=== PATIENT | female | born 1980 | race Caucasian/White ===

== ENCOUNTER → 2018-02-21 14:28 | Outpatient (CLI) | payer OTHER, SELFPAY ==
[2018-02-27 10:06] LABS: HPV APTIMA, High Risk Negative (Negative)
== END ==
PROVIDERS: Visit Provider Obstetrics & Gynecology
DX: Z12.4 Encounter for screening for malignant neoplasm of cervix (principal)
CPT/HCPCS: 88175; G0145

== ENCOUNTER 2018-03-14 19:46 | Emergency (ER) | payer OTHER, SELFPAY ==
[2018-03-14 19:47] VITALS: BP 120/77; PULSE 98; RESP 18; TEMP 36.6; O2SAT 98; BMI 25.8
[2018-03-14 20:47] LABS: Absolute Lymphocyte Count 0.77 X10^3/ul (0.83-4.51); Absolute Neutrophil Count 9.6 X10^3/uL (2.0-7.7); Basophil# 0.02 X10^3/uL; Basophil% 0.2 % (0-1); Eosinophil# 0.04 X10^3/uL; Eosinophils% 0.4 % (0-5); Hematocrit 41.7 % (37-47); Lymphocyte # 0.77 X10^3/ul (4.0); Lymphocyte % 6.9 % (19-41); Mean Corp Hgb Conc 33.6 g/gl (32-36); Mean Corpuscular Hgb 29.9 pg (27.0-32.0); Mean Corpuscular Volume 89.1 fL (81-99); Monocyte# 0.69 X10^3/uL; Monocyte% 6.2 % (0-10); Neutrophil # 9.58 X10^3/uL (2.7-7.7); Platelet Count 290 K/mm3 (150-450); RBC Distribution Width CV 12.5 % (11.6-14.6); RBC Distribution Width SD 40.3 fl (35.1-43.9); Red Blood Count 4.68 M/mm3 (4.2-5.4); White Blood Count 11.1 K/mm3 (4.4-11.0)
[2018-03-14 20:58] LABS: POSITIVE COUNT NO; POSITIVE DIFFERENTIAL NO; POSITIVE MORPHOLOGY NO
[2018-03-14] MEDS: proMETHazine 25 MG/ML Syringe 12.5 MG IV (21:05)
[2018-03-14] MEDS: 0.9% Normal Saline 1,000 ML 1000 ML IV (21:05)
[2018-03-14 21:07] LABS: ALB/GLOB Ratio 0.9 RATIO (0.9-2.4); AST(SGOT) 16 U/L (15-37); Alanine Aminotransfer ALT/SGPT 17 U/L (13-56); Albumin, Serum 3.6 g/dL (3.2-5.0); Alkaline Phosphatase 90 U/L (45-117); Anion Gap 7 (5-15); BUN 12 mg/dL (7-18); BUN/Creat Ratio 13.1 RATIO (10-20); Calcium,Total 8.1 mg/dL (8.5-10.1); Chloride 105 mmol/L (98-107); Creatinine, Serum 0.92 mg/dL (0.55-1.02); EST Glomerular Filtration Rate 73 mL/min (>60); Est Glom Filt Rate - Afr Amer 89 mL/min (>60); Estimated Creatinine Clearance 122.11 ml/min; Globulin 3.9 g/dL (2.2-4.2); Glucose 99 mg/dL (74-106); Potassium 3.7 mmol/L (3.5-5.1); Protein, Total 7.5 g/dL (6.4-8.2); Sodium Level 137 mmol/L (136-145)
--- NOTE | 2018-03-14 22:04 | ED.VISSUMM ---
- ER Visit Summary Date of Service: 03/14/18 Chief Complaint: [] Nausea, vomiting, diarrhea History of Present Illness: The patient is a 37 F [] complaining of nausea/vomiting/diarrhea beginning today. Patient reports she woke at 6:30 with the previously described symptoms denies hematemesis or hematochezia. No other complaints at this time. Physical Examination: [] Afebrile, vital signs stable. Cardiovascular exam is regular rate and rhythm. Lungs are clear to auscultation. Abdomen is soft and nontender. Remainder of exam is unremarkable Test Results: [] CBC, BMP, LFTs within normal limits. Emergency Department Course and Treatment: [] Given intravenous fluid bolus, 12.5 mg intravenously of Phenergan. On serial exam she had improvement of symptoms and was amenable to discharge. She will be discharged home with a prescription for oral Phenergan and instructions to follow-up with her primary care physician. Treatment Plan: [] Follow-up with PCP. Disposition: [] Discharge, stable. Impression: [] Vomiting Diarrhea This note was generated with [employer] dictation software. It may contain incorrect words, spelling, and punctuation that were not noted in review of the chart prior to signing ED Disposition - Plan for ED Patient: Chief Complaint: Nausea/Vomiting/Diarrhea Referrals: Consuelo Cameron NP-C [Primary Care Provider] -
--- NOTE | 2018-03-14 22:07 | ED.DCSUM_ITS ---
- ER Visit Summary Date of Service: 03/14/18 Chief Complaint: [] Nausea, vomiting, diarrhea History of Present Illness: The patient is a 37 F [] complaining of nausea/ vomiting/diarrhea beginning today. Patient reports she woke at 6:30 with the previously described symptoms denies hematemesis or hematochezia. No other complaints at this time. Physical Examination: [] Afebrile, vital signs stable. Cardiovascular exam is regular rate and rhythm. Lungs are clear to auscultation. Abdomen is soft and nontender. Remainder of exam is unremarkable Test Results: [] CBC, BMP, LFTs within normal limits. Emergency Department Course and Treatment: [] Given intravenous fluid bolus, 12.5 mg intravenously of Phenergan. On serial exam she had improvement of symptoms and was amenable to discharge. She will be discharged home with a prescription for oral Phenergan and instructions to follow-up with her primary care physician. Treatment Plan: [] Follow-up with PCP. Disposition: [] Discharge, stable. Impression: [] Vomiting Diarrhea This note was generated with [employer] dictation software. It may contain incorrect words, spelling, and punctuation that were not noted in review of the chart prior to signing ED Disposition - Plan for ED Patient: Chief Complaint: Nausea/Vomiting/Diarrhea Referrals: Consuelo Cameron NP-C [Primary Care Provider] -
--- NOTE | 2018-03-14 22:08 | DCINST.ED_ITS ---
ED Disposition - Plan for ED Patient: Disposition: Home or Assisted Living Chief Complaint: Nausea/Vomiting/Diarrhea Instructions: ED Diet Vomiting Diarrhea Prescriptions: proMETHazine tablet [Phenergan tablet] 25 mg PO Q6H PRN PRN #20 tab PRN Reason: Nausea Referrals: Consuelo Cameron, LEGAL SPECIALIST-C [Primary Care Provider] -
[2018-03-14 22:32] VITALS: BP 155/80; PULSE 80; RESP 14; O2SAT 99
== END 2018-03-14 22:32 | disposition home or self-care (01) ==
PROVIDERS: Emergency Provider Emergency Medicine; Family Provider Nurse Practitioner Family; PCP Nurse Practitioner Family
DX: R11.2 Nausea with vomiting, unspecified (principal); R19.7 Diarrhea, unspecified; Z72.0 Tobacco use
CPT/HCPCS: 80053; 85025; 99283; J7030

== ENCOUNTER 2018-05-28 12:04 | Emergency (ER) | payer OTHER, SELFPAY ==
[2018-05-28 12:05] VITALS: BP 112/83; PULSE 78; RESP 16; TEMP 36.2; O2SAT 100; BMI 34.9
--- NOTE | 2018-05-28 12:58 | ED.RN ---
NO OLD EKG
--- NOTE | 2018-05-28 13:07 | EKG12_ITS ---
Test Reason : Blood Pressure : / mmHG Vent. Rate : 059 BPM Atrial Rate : 059 BPM P-R Int : 146 ms QRS Dur : 084 ms QT Int : 436 ms P-R-T Axes : 018 017 007 degrees QTc Int : 431 ms Sinus bradycardia Low voltage QRS Borderline ECG Confirmed by CAROLYNE NUÑEZ, LYNSEY ([id number]), dictionary editor JUD SHIELDS ([id number]) on 05/30/2018 1:42:04 PM Referred By: Cinthia Smith Confirmed By:LYNSEY BARFIELD MD
--- NOTE | 2018-05-28 13:38 | ED.DCSUM_ITS ---
- ER Visit Summary Date of Service: 05/28/18 Chief Complaint: [Dizziness] History of Present Illness: The patient is a 37 F [who presents the emergency department with dizziness. It started 1 week ago. It started after she tripped and fell and hit her head on the floor. She was unable to get up for approximately 15 minutes afterwards. Since that time every time she stands up walks or moves around she gets severe dizziness. She gets nauseated with it. She does have a headache. She denies any other health history she takes something for depression but has not taken it in over a month. She does smoke. She has no other complaints.] Physical Examination: [] WN WD NAD PERRL EOMI patient will not open her eyes to evaluate for nystagmus but her eyes cross midline on both sides MMM NECK supple and nontender, no masses RRR no murmur rub or gallop, no peripheral edema, symmetric radial pulses CTAB no respiratory distress ABDOMEN is soft and nontender, normal bowel sounds, no distension, no rebound or guarding SKIN is warm and dry no rashes Alert and Oriented x3, CN II-XII in tact, no motor or sensory deficits, gait normal patient has dizziness with movement in any direction. No lymphadenopathy Test Results: [] Emergency Department Course and Treatment: [Patient CT is unremarkable. Labs are unremarkable. She was doing better after 5 of p.o. Valium. I do think her symptoms are likely concussion related. She will rest she was given medication for meclizine and instructions for follow-up. She is invited to come back to the ER for any concerns] Treatment Plan: [] Disposition: [Discharge] Impression: [Concussion] This note was generated with [employer] dictation software. It may contain incorrect words, spelling, and punctuation that were not noted in review of the chart prior to signing ED Disposition - Plan for ED Patient: Chief Complaint: Dizziness Referrals: Consuelo Cameron, JUNIOR-C [Primary Care Provider] -
--- NOTE | 2018-05-28 13:40 | CT_ITS ---
STUDY: CT BRAIN WITHOUT CONTRAST REASON FOR EXAM: Female, 37 years old. Dizziness RADIATION DOSAGE (If Supplied By Facility): CTDIvol = ( 60.81 ) mGy, DLP = ( 1021.47 ) mGycm TECHNIQUE: Transaxial CT imaging of the brain was performed without administration of intravenous contrast material. Coronal and sagittal 2-D MPR Individualized dose optimization techniques were used for this CT. COMPARISON: None. FINDINGS: Extracranial soft tissues including orbital contents exhibit no acute abnormality. Craniofacial osseous structures within the field of view exhibit no acute abnormality. There is minimal mucoperiosteal thickening of the maxillary sinuses, moderate and multifocal of the ethmoid sinuses, minimal of the sphenoid sinuses, partially extending into the base of each frontal sinus. The mastoid air cells and middle ear cavities are clear. Symmetric and grossly normal appearance of the vestibular and acoustic apparatus of the temporal bones bilaterally. Normal size ventricles and extra-axial spaces for the patient's age. Normal pituitary, brainstem and cerebellum There is no acute intracranial bleed, mass or mass effect nor any specific evidence of acute territorial infarct. CT/Brain/Head without Contrast IMPRESSION: Paranasal sinus disease. No acute intracranial process. Electronically Signed: Cody Carolina, at 14:30 EDT Tel , Service support ,
[2018-05-28 13:49] LABS: Absolute Neutrophil Count 3.8 X10^3/uL (2.0-7.7); Basophil# 0.04 X10^3/uL; Basophil% 0.6 % (0-1); Eosinophil# 0.21 X10^3/uL; Hemoglobin 12.3 g/dl (12.0-15.0); Lymphocyte % 33.3 % (19-41); Mean Corp Hgb Conc 32.4 g/gl (32-36); Mean Corpuscular Hgb 29.1 pg (27.0-32.0); Mean Platelet Vol. 10.1 fl (6.2-12.0); Monocyte% 8.7 % (0-10); Neutrophil # 3.75 X10^3/uL (2.7-7.7); Neutrophil % 54.3 % (47-70); Platelet Count 266 K/mm3 (150-450); RBC Distribution Width CV 13.2 % (11.6-14.6); RBC Distribution Width SD 43.4 fl (35.1-43.9); Red Blood Count 4.22 M/mm3 (4.2-5.4); White Blood Count 6.9 K/mm3 (4.4-11.0)
[2018-05-28] MEDS: 0.9% Normal Saline 1,000 ML 1000 ML IV (13:50)
[2018-05-28] MEDS: diazePAM 5 MG Tablet PO (13:50)
[2018-05-28 13:51] LABS: POSITIVE COUNT NO; POSITIVE DIFFERENTIAL NO; POSITIVE MORPHOLOGY NO
[2018-05-28 14:00] LABS: ALB/GLOB Ratio 0.9 RATIO (0.9-2.4); AST(SGOT) 9 U/L (15-37); Alanine Aminotransfer ALT/SGPT 18 U/L (13-56); Albumin, Serum 3.2 g/dL (3.2-5.0); Alkaline Phosphatase 70 U/L (45-117); Anion Gap 7 (5-15); BUN 15 mg/dL (7-18); BUN/Creat Ratio 16.2 RATIO (10-20); Calcium,Total 8.4 mg/dL (8.5-10.1); Chloride 112 mmol/L (98-107); Creatinine, Serum 0.92 mg/dL (0.55-1.02); EST Glomerular Filtration Rate 73 mL/min (>60); Est Glom Filt Rate - Afr Amer 88 mL/min (>60); Estimated Creatinine Clearance 85.28 ml/min; Globulin 3.4 g/dL (2.2-4.2); Glucose 91 mg/dL (74-106); Potassium 3.7 mmol/L (3.5-5.1); Protein, Total 6.6 g/dL (6.4-8.2); Sodium Level 143 mmol/L (136-145)
--- NOTE | 2018-05-28 15:10 | ED.DEP ---
ED Disposition - Plan for ED Patient: Chief Complaint: Dizziness Instructions: ED Concussion Referrals: Consuelo Cameron, JUNIOR-C [Primary Care Provider] - 3-5 Days Joseph Handley MD [STAFF PHYSICIAN] -
--- NOTE | 2018-05-28 15:38 | ED.DEP ---
ED Disposition - Plan for ED Patient: Chief Complaint: Dizziness Instructions: ED Concussion Prescriptions: Meclizine HCl [Motion Sickness Relief] 25 mg PO 4X/DAY PRN PRN #20 tablet PRN Reason: Dizziness Referrals: Joseph Handley MD [STAFF PHYSICIAN] - Consuelo Cameron NP-C [Primary Care Provider] - 3-5 Days
[2018-05-28 15:40] VITALS: BP 122/74; PULSE 76; RESP 16; RESP 19; O2SAT 99
--- NOTE | 2018-05-28 15:41 | ED.RN ---
REVIEWED D/C INSTRUCTIONS, FOLLOW UP CARE, PRESCRIPTION, AND S/S THAT WOULD WARRANT A RETURN TO THE ED WITH PT. PT VERBALIZED AN UNDERSTANDING AND DENIES FURTHER QUESTIONS FOR THIS RN. PT SKIN P/W/D, RESP EVEN AND UNLABORED, PT A&O X 3, NO DISTRESS NOTED. PT AMBULATED OUT OF ED, GAIT STEADY.
== END 2018-05-28 15:42 | disposition home or self-care (01) ==
PROVIDERS: Emergency Provider Emergency Medicine; Family Provider Nurse Practitioner Family; PCP Nurse Practitioner Family
DX: S06.0X9A Concussion with loss of consciousness of unspecified duration, initial encounter (principal); W01.198A Fall on same level from slipping, tripping and stumbling with subsequent striking against other object, initial encounter; Y93.9 Activity, unspecified; Y92.9 Unspecified place or not applicable; Y99.9 Unspecified external cause status; Z72.0 Tobacco use
CPT/HCPCS: 70450; 80053; 85025; 93005; 96360; 99285; J7030

== ENCOUNTER → 2018-08-19 15:26 | Outpatient (CLI) | payer OTHER, SELFPAY | PROVIDERS: Referring Provider Nurse Practitioner Family; Visit Provider Nurse Practitioner Family | DX: G47.10 Hypersomnia, unspecified (principal) | CPT/HCPCS: 95810 ==

== ENCOUNTER 2020-09-23 12:15 | Emergency (ER) | payer OTHER, SELFPAY ==
[2019-11-16 11:32] VITALS: BMI 34.9
[2020-09-23 12:15] VITALS: BP 133/78; PULSE 106; RESP 18; TEMP 36.8; O2SAT 100; BMI 31.9
[2020-09-23] MEDS: Ibuprofen 600 MG Tablet PO (13:45)
[2020-09-23] MEDS: Cephalexin 250 MG Capsule 500 MG PO (13:45)
[2020-09-23] MEDS: Smz/Tmp Ds Tablet 1 TABLET PO (13:45)
--- NOTE | 2020-09-23 14:09 | ED.DCSUM_ITS ---
History of Present Illness Chief Complaint: Abscess Informant: Patient Onset: Days - 2 Narrative: 2 days worsening pain and bump on her right armpit. No fevers. No drainage. Pain with palpation. No history of diabetes. No history of similar. Denies any past medical history. Prior similar symptoms: No Past Medical History - Allergies and Home Meds Allergies/Adverse Reactions: Allergies No Known Allergies Allergy (Verified 09/23/20 12:17) Primary Care Physician: [facility],Courtney Carias [Primary Care Provider] - Past Medical History: None Smoking Status: Smoker, status unknown Review of Systems General: Denies: Chills, Fever, Sweats Eyes: Denies: Visual changes - bilaterally, Diplopia ENT: Denies: Rhinorrhea, Sore throat Cardiovascular: Denies: Chest pain, Palpitations Respiratory: Denies: Dyspnea, Cough, Dyspnea on exertion Gastrointestinal: Denies: Abdominal pain, Nausea, Vomiting, Diarrhea, Melena, Hematochezia Genitourinary: Denies: Dysuria, Hematuria, Frequency Musculoskeletal: Denies: Back pain, Extremity Pain Skin: Reports: Abscess. Denies: Rash, Wounds Neurological: Denies: Headache, Weakness, Numbness Physical Exam Vital Signs/Narrative: Vital Signs Temp Pulse Resp BP Pulse Ox 09/23/20 12:15 98.2 F 106 H 18 133/78 H 100 Inital Vital Signs reviewed: Yes General: Well nourished, Well developed, No Acute Distress Head: Normocephalic, Atraumatic Eyes: Perrl, EOMI ENT: Moist mucous membranes, No rhinorrhea Neck: Supple, Nontender Cardiovascular: Regular rate, Regular rhythm, No murmurs Respiratory: No distress, CTA bilaterally, Chest nontender Abdomen: Soft, Nontender, Nondistended, Normal bowel sounds Back: Nontender, Normal Inspection Extremities: Nontender, No edema Skin: - - Right axillary: There is a 4 cm x 2.5 cm fluctuance along the axillary chest line region. There is a patch of erythema on the lower aspect. Sniffily tender to palpation. No active drainage. Neurological: Alert, Oriented x3, Cranial nerves II-XII grossly intact, Normal Strength, Normal Sensation Psychological: Normal affect, Normal Mood Diagnostic/Tx/Re-eval - Medical Decision Making Patient exam concerns for cellulitic region with possible abscess from the superior to inferior aspect of the fluctuance. Started on Keflex and Bactrim given ibuprofen ED. Discussed incision and drainage due to fluctuance which she agreed. This was performed initially on the superior aspect with a larger region however there was no exudative drainage, there is soft tissue fat noted, therefore I&D was attempted on the lower aspect over the erythema region, again there is no exudates. Discussed soft tissue mass with the patient, there is no induration in the outer breast region. However she does report family history of breast cancer she has been screened in the past however none recently. She has tobacco history. There is no lymph nodes in the axillary region that was palpable. She began prescription for pain control antibiotics for cellulitis and follow-up with surgery for outpatient evaluation. Signs and sent discussed return. All questions were answered. Procedure note: Verbal consent. Incision and drainage. Normal sterile fashion. A total of 15 cc 0.5% bupivacaine used for local analgesia. Initial cruciate incision placed on the upper aspect with no exudative drainage, there is soft fatty tissue noted. No loculations to break. Inferior aspect was NS to size, straight incision, again no exudates. Patient tolerated procedure well. Dressing by nursing. ED Disposition - Plan for ED Patient: Disposition: Home or Assisted Living Diagnosis: Cellulitis of right axilla, Soft tissue mass Instructions: ED Abscess Incision And Drainage Prescriptions: Smz/Tmp Ds [Bactrim Ds] 1 tab PO BID #20 tab Transmission Status: Pending to [facility] Cephalexin [Keflex] 500 mg PO Q6 #40 cap Transmission Status: Pending to [facility] Hydrocodone Bitart/Apap 5-325 [Simms 5MG-325MG] 1 tablet PO Q6H PRN PRN 3 Days #10 tablet PRN Reason: Pain Transmission Status: Sent to [facility] Referrals: Shanique Oviedo MD [STAFF PHYSICIAN] - 3-5 Days [facility],Courtney Carias [Primary Care Provider] - 5-7 Days Additional Instructions: No exudates from the soft tissue mass, follow-up with surgery for outpatient evaluation. Take antibiotic as prescribed.
== END 2020-09-23 14:52 | disposition home or self-care (01) ==
PROVIDERS: Emergency Provider Emergency Medicine
DX: L03.111 Cellulitis of right axilla (principal); R22.2 Localized swelling, mass and lump, trunk; F17.200 Nicotine dependence, unspecified, uncomplicated
CPT/HCPCS: 10060; 99283

== ENCOUNTER 2020-09-27 15:51 | Inpatient (IN) | payer OTHER, SELFPAY ==
[2020-09-27 14:37] VITALS: BMI 38.5
[2020-09-27 15:53] VITALS: BP 134/72; PULSE 96; RESP 18; TEMP 35.9; O2SAT 100; BMI 38.5
--- NOTE | 2020-09-27 16:23 | CT_ITS ---
STUDY: CT CHEST WITH CONTRAST REASON FOR EXAM: Female, 39 years old. Right axillary abscess. Cellulitis. RADIATION DOSAGE (If Supplied By Facility): CTDIvol = ( 13.7 ) mGy, DLP = ( 750.27 ) mGycm TECHNIQUE: Transaxial imaging was performed following intravenous administration of 100 ml of ISOVUE-300 contrast material. Coronal and sagittal reformatted images were created. Individualized dose optimization techniques were used for this CT. COMPARISON: None FINDINGS: There are no pulmonary infiltrates or pleural effusions. There are no pulmonary nodules or masses. There is no pneumothorax. The heart and pericardium are within normal limits. There is no evidence of thoracic aortic aneurysm. Images through the upper abdomen demonstrate no significant abnormality. There is diffuse subcutaneous edema with stranding and fluid noted in the right axilla. There is no discrete fluid collection. There is right axillary lymphadenopathy with the largest node measuring 1.8 cm. There is no left axillary lymphadenopathy. There is no mediastinal or hilar lymphadenopathy. There are no destructive osseous lesions. CT/Chest WITH Contrast IMPRESSION: Diffuse subcutaneous edema with stranding and subcutaneous fluid in the right axilla. No discrete fluid collection. Right axillary lymphadenopathy. Electronically Signed: Bishnu Allen, at 18:20 EST Tel , Service support ,
--- NOTE | 2020-09-27 16:26 | ED.DCSUM_ITS ---
History of Present Illness Chief Complaint: Abscess Informant: Patient Onset: Weeks - 1 week Current Severity: Moderate Maximum Severity: Moderate Narrative: Patient presents with cellulitis versus abscess to the right axilla. She states she first noted the lesion 1 week ago. She was seen in the ER on the . 2 separate fluctuant areas were I&D without return of pus. She was placed on Bactrim and Keflex. She followed up today with B[facility]INFORMAT[facility] TECHNICIAN secondary to concern for possible underlying mass. They did not feel that there was evidence of a breast mass and was sent to the surgical office. Surgery office felt that the area was cellulitic but did not feel any palpable masses amenable to drainage. She was sent to the ER for blood work, CT scan and possible admission for IV antibiotics. Patient does report having some chills but no fever. She has never had similar lesions in the past. - Past Medical History (1) Anxiety Status: Chronic Past Medical History - Allergies and Home Meds Allergies/Adverse Reactions: Allergies No Known Allergies Allergy (Verified 09/27/20 15:52) [facility] - Smoking Status: Current every day smoker Review of Systems General: Reports: Chills. Denies: Fever Eyes: Denies: Visual changes - bilaterally ENT: Denies: Bilateral ear pain Cardiovascular: Denies: Chest pain Respiratory: Denies: Dyspnea, Cough Gastrointestinal: Denies: Abdominal pain, Nausea, Vomiting Musculoskeletal: Reports: Extremity Pain Skin: Reports: Wounds Neurological: Denies: Weakness, Parasthesia Hematologic: Denies: Easy bruising, Easy bleeding Allergy: Denies: Uticaria Physical Exam Vital Signs/Narrative: Vital Signs Temp Pulse Resp BP Pulse Ox 09/27/20 15:53 96.6 F L 96 18 134/72 H 100 Inital Vital Signs reviewed: Yes General: Well nourished, Well developed Head: Normocephalic Eyes: Perrl, EOMI ENT: Moist mucous membranes Neck: Supple Cardiovascular: Regular rate, Regular rhythm Respiratory: No distress, CTA bilaterally Abdomen: Soft, Nontender Extremities: - - 2 areas of recent I&D noted in the right axilla. Surrounding erythema and skin thickness. No lymphangitic streak noted. Neurological: Alert, Oriented x3 Psychological: Normal affect Diagnostic/Tx/Re-eval Impressions Chest CT 09/27/20 16:23 IMPRESSION: Diffuse subcutaneous edema with stranding and subcutaneous fluid in the right axilla. No discrete fluid collection. Right axillary lymphadenopathy. Electronically Signed: Bishnu Allen, at 18:20 EST Tel , Service support , 09/27/20 16:23 CT Chest [Chest WITH Contrast] [CT] Stat Laboratory Results 09/27/20 09/27/20 16:30 16:30 WBC 14.7 H RBC 4.20 Hgb 12.4 Hct 38.1 MCV 90.7 MCH 29.5 MCHC 32.5 RDW Std Deviation 46.0 H RDW Coeff of Cira 13.7 Plt Count 352 MPV 9.6 Immature Gran % (Auto) 2.000 H Neut % (Auto) 77.4 H Lymph % (Auto) 10.9 L [place] % (Auto) 8.5 Eos % (Auto) 0.7 Baso % (Auto) 0.5 Absolute Neuts (auto) 11.3 H Absolute Lymphs (auto) 1.60 Nucleated RBC % 0 Sodium 135 L Potassium 3.7 Chloride 105 Carbon Dioxide 23.0 Anion Gap 7 BUN 11 Creatinine 0.84 Estim Creat Clear Calc 91.60 Est GFR (MDRD) Af Amer 97 Est GFR (MDRD) Non-Af 80 BUN/Creatinine Ratio 13.1 Glucose 86 Calcium 8.6 - Medical Decision Making Patient was given morphine and Zofran for pain on arrival. On repeat evaluation patient is resting more comfortably. CT scan confirms cellulitis but no deep abscess. Patient be admitted for IV antibiotics. Vancomycin has been ordered here. ED Disposition - Plan for ED Patient: Disposition: Home or Assisted Living Diagnosis: Cellulitis Referrals: [facility],Courtney Carias [Primary Care Provider] -
[2020-09-27] MEDS: Ondansetron 4 MG/2 ML Vial IV (16:39)
[2020-09-27] MEDS: Morphine 4 MG/ML Syringe IV (16:39)
[2020-09-27 16:42] LABS: Absolute Neutrophil Count 11.3 X10^3/uL (2.0-7.7); Basophil# 0.08 X10^3/uL; Basophil% 0.5 % (0-1); Eosinophil# 0.11 X10^3/uL; Eosinophils% 0.7 % (0-5); Hematocrit 38.1 % (37-47); Hemoglobin 12.4 g/dL (12.0-15.0); Lymphocyte % 10.9 % (19-41); Mean Corp Hgb Conc 32.5 g/dL (32-36); Mean Corpuscular Hgb 29.5 pg (27.0-32.0); Mean Corpuscular Volume 90.7 fL (81-99); Mean Platelet Vol. 9.6 fl (6.2-12.0); Monocyte# 1.24 X10^3/uL; Monocyte% 8.5 % (0-10); NRBC Flagged by Analyzer 0 % (0-5); Neutrophil # 11.34 X10^3/uL (2.7-7.7); Neutrophil % 77.4 % (47-70); Platelet Count 352 K/mm3 (150-450); RBC Distribution Width CV 13.7 % (11.6-14.6); White Blood Count 14.7 K/mm3 (4.4-11.0)
[2020-09-27 16:58] LABS: Anion Gap 7 (5-15); BUN 11 mg/dL (7-18); BUN/Creat Ratio 13.1 RATIO (10-20); Calcium,Total 8.6 mg/dL (8.5-10.1); Chloride 105 mmol/L (98-107); Creatinine, Serum 0.84 mg/dL (0.55-1.02); EST Glomerular Filtration Rate 80 mL/min (>60); Est Glom Filt Rate - Afr Amer 97 mL/min (>60); Glucose 86 mg/dL (74-106); Potassium 3.7 mmol/L (3.5-5.1); Sodium Level 135 mmol/L (136-145)
[2020-09-27 19:04] VITALS: BMI 38.5
[2020-09-27 19:15] VITALS: BP 115/74; PULSE 80; RESP 16; TEMP 36.9
[2020-09-27 19:19] VITALS: BP 115/74; PULSE 80; RESP 16; TEMP 36.9; O2SAT 100
[2020-09-27 19:28] VITALS: BP 111/58; PULSE 76; RESP 18; TEMP 36.1; O2SAT 100
--- NOTE | 2020-09-27 19:38 | PCM.HP.STD ---
History of Present Illness Date of Admission: 09/27/20 Chief Complaint: Arm pain The patient is a 39 year old F with PMH as below who presents to the hospital with right axillary pain and redness. She states that on Saturday of last week she started doing some redness and came to the ER on Saturday. She had 2 areas of procedure fluctuant that were I&D however there is no purulent material obtained and no culture obtained. She was started on Bactrim and Keflex and discharged home. She followed up with gynecology because the ER physician that he had felt a lump, however they evaluated her breast and did not think that she had a lump but they referred her today on the day of admission, to surgery who evaluated her and felt that she needed to come into the ER for a CT scan. She was found to have redness as well as a leukocytosis of [address] scan was negative for any abscess but there is continued thickening, subcutaneous stranding and skin redness consistent with cellulitis. She was given a dose of vancomycin in the ER Past Medical History Past Medical History (Chronic Problems): Chronic Problems (Last Reviewed 09/27/20 @ 14:42 by Flory Moran) Anxiety (Chronic) Depression (Chronic) Medical History: Medical History (Last Reviewed 09/27/20 @ 14:42 by Flory Moran) Depression (Chronic) F32.9 Chronic pain G89.29 Allergies No Known Allergies Allergy (Verified 09/27/20 15:52) Home Medications: Ambulatory Orders Medication Instructions Recorded Cephalexin [Keflex] 500 mg PO Q6 09/27/20 Smz/Tmp Ds [Bactrim Ds] 1 tab PO BID 09/27/20 Surgical History: Surgical History (Last Reviewed 09/27/20 @ 14:42 by Flory Moran) History of placement of ear tubes Z96.22 S/P eye surgery Z98.890 S/P tonsillectomy Z90.89 jaw surgery right femur surgery Smoking Status: Current every day smoker Tobacco Use: Cigarettes Alcohol: None Drugs: None - *Family History Maternal Family History: Family History (Last Reviewed 09/27/20 @ 14:42 by Flory Moran) Mother Myocardial infarction Other Colon cancer Paternal Family History: Family History (Last Reviewed 09/27/20 @ 14:42 by Flory Moran) Mother Myocardial infarction Other Colon cancer History Items: Unknown Review of Systems Constitutional: Reports: Chills. Denies: Fever, Weight Change HEENT: Denies: Head Aches, Sinus Congestion, Sinus Drainage Cardiovascular: Denies: Chest Pain, Palpitations Respiratory: Denies: Cough, Shortness of breath at rest, Sputum production Gastrointestinal: Denies: Abdominal Pain, Nausea, Vomiting Genitourinary: Denies: Dysuria Musculoskeletal: Denies: Joint Pain, Joint Tenderness Skin: Reports: Wounds. Denies: Rash Neurological: Denies: Numbness, Tingling, Focal weakness Psychiatric: Denies: Anxiety, Depression Hematologic/ Lymphatic: Denies: Easy Bruising, Easy Bleeding VTE Information - Inpt Only VTE Present on Admission: No Patient Problems: Active and Suspected Problems (Last Reviewed 09/27/20 @ 14:42 by Flory Moran) Cellulitis (Acute) - Physical Exam Vitals/I&O's: Vital Signs Temp Pulse Resp BP Pulse Ox 97 F L 76 18 111/58 L 100 09/27/20 19:28 09/27/20 19:28 09/27/20 19:28 09/27/20 19:28 09/27/20 19:28 Oxygen Delivery Method Room Air Weight: 253 lb 1.451 oz Body Mass Index (BMI) 38.5 General: Alert, Oriented x3, Cooperative, No apparent distress HEENT: Atraumatic, PERRLA, EOMI, Normocephalic Oral: Moist Mucosa Neck: Supple, No JVD Lungs: Clear to auscultation, Normal air movement, No rhonchi, No wheeze, No rales Cardiovascular: Regular rate, Regular Rhythm, Normal S1, Normal S2, No murmurs Abdomen: Soft, Non Tender, Non-Distended, No Hepato-splenomegaly, Obese Extremities: No edema, Capillary Refill Less than 3 Seconds Skin: Ulcer/ Wound - 2 wounds about a centimeter in diameter in her right axilla from her previous I&D with mild cellulitic changes surrounding both wounds Neurological: Neuro grossly intact, Sensory exam intact to light touch and pain Psych/Mental Status: Normal Affect, Appropriate Laboratory Results 09/27/20 16:30: WBC 14.7 H, RBC 4.20, Hgb 12.4, Hct 38.1, MCV 90.7, MCH 29.5, MCHC 32.5, RDW Std Deviation 46.0 H, RDW Coeff of Cira 13.7, Plt Count 352, MPV 9.6, Immature Gran % (Auto) 2.000 H, Neut % (Auto) 77.4 H, Lymph % (Auto) 10.9 L, [place] % (Auto) 8.5, Eos % (Auto) 0.7, Baso % (Auto) 0.5, Absolute Neuts (auto) 11.3 H, Absolute Lymphs (auto) 1.60, Nucleated RBC % 0 09/27/20 16:30: Sodium 135 L, Potassium 3.7, Chloride 105, Carbon Dioxide 23.0, Anion Gap 7, BUN 11, Creatinine 0.84, Estim Creat Clear Calc 91.60, Est GFR (MDRD) Af Amer 97, Est GFR (MDRD) Non-Af 80, BUN/Creatinine Ratio 13.1, Glucose 86, Calcium 8.6 Current Medications Vancomycin HCl 1,750 mg/ (Sodium Chloride) 535 mls @ 250 mls/hr IV X1 ONE Stop: 09/27/20 21:23 Influenza Virus Vaccine Quadrival (Influenza Vaccine (6mos+)/Pf 0.5 Ml Syringe) 0.5 ml IM .ONCE ONE Stop: 09/28/20 10:01 Sodium Chloride (0.9% Saline Lock 10 Ml Syringe) 10 - 40 ml IV UD PRN PRN Reason: SALINE FLUSH Assessment/Plan All Active Problems (Last Reviewed 09/27/20 @ 14:42 by Flory Moran) Cellulitis (Acute) 1. Right axillary cellulitis status post I&D on 09/23/2020 with failure of outpatient antibiotics -She states that she took both Bactrim and Keflex appropriately for 5 days without any improvement -Currently with leukocytosis of 14.7 and a left shift -We will broaden her antibiotics to vancomycin and Zosyn and continue to monitor -Blood cultures are pending DVT: Ambulation Inpatient E&M: 24106 Init Hosp L2
[2020-09-27] MEDS: Morphine 2 MG/ML Syringe IV (20:15)
[2020-09-27 20:17] VITALS: BMI 37.6
--- NOTE | 2020-09-27 20:39 | PCM.RX.CS ---
Consult Pharmacy has been consulted to manage selected antiobiotic: Vancomycin Type of Consult: New start Suspected Infection: Skin/Soft tissue Prior Doses of Antibiotics Received/Current Regimen: received 1750mg IV x1 in E.R. starting at 20:15 tonight Labs: Sodium 135 mmol/L (136-145) L 09/27/20 16:30 Potassium 3.7 mmol/L (3.5-5.1) 09/27/20 16:30 Chloride 105 mmol/L (98-107) 09/27/20 16:30 Carbon Dioxide 23.0 mmol/L (21.0-32.0) 09/27/20 16:30 Anion Gap 7 (5-15) 09/27/20 16:30 BUN 11 mg/dL (7-18) 09/27/20 16:30 Creatinine 0.84 mg/dL (0.55-1.02) 09/27/20 16:30 Est GFR (MDRD) Af Amer 97 mL/min (>60) 09/27/20 16:30 Est GFR (MDRD) Non-Af 80 mL/min (>60) 09/27/20 16:30 BUN/Creatinine Ratio 13.1 RATIO (10-20) 09/27/20 16:30 Glucose 86 mg/dL (74-106) 09/27/20 16:30 Weight used for dosin.4 kg Estimated Creatinine Clearance: 119ml/min Goal Trough: 15-20 mcg/mL Pharmacy Plan for Drug Dosing: After the E.R. dose is finished, will continue with 1250mg IV q8h. A trough will be ordered to be drawn before the 4th dose tomorrow and further dosing will be evaluated then. The patient's CrCl was calculated using an adjusted body weight of 83.3kg. Pharmacy Service will continue to monitor and adjust dosing as required. Follow-Up Labs: Trough Vancomycin Labs to be done on [date and time ordered]: 09/28/20 19:30
[2020-09-27] MEDS: Acetaminophen 325 MG Tablet 650 MG PO (22:58)
[2020-09-28 02:08] VITALS: BP 107/51; PULSE 73; RESP 18; TEMP 36.4; O2SAT 98
[2020-09-28] MEDS: Morphine 2 MG/ML Syringe IV ×5 (02:31→23:21)
[2020-09-28] MEDS: 0.9% Saline Lock 10 ML Syringe IV ×5 (02:31→23:21)
[2020-09-28 04:34] LABS: Probe Check PASS
[2020-09-28 04:36] LABS: M R Staph aureus DNA By PCR POSITIVE (Negative); Staph aureus DNA By PCR POSITIVE (Negative)
[2020-09-28 06:03] LABS: Absolute Lymphocyte Count 2.43 X10^3/uL (0.83-4.51); Absolute Neutrophil Count 10.9 X10^3/uL (2.0-7.7); Basophil% 0.7 % (0-1); Eosinophil# 0.21 X10^3/uL; Eosinophils% 1.4 % (0-5); Hematocrit 36.6 % (37-47); Hemoglobin 11.8 g/dL (12.0-15.0); Lymphocyte # 2.43 X10^3/ul (4.0); Mean Corp Hgb Conc 32.2 g/dL (32-36); Mean Corpuscular Hgb 29.5 pg (27.0-32.0); Mean Corpuscular Volume 91.5 fL (81-99); Mean Platelet Vol. 9.7 fl (6.2-12.0); Monocyte# 1.14 X10^3/uL; Monocyte% 7.5 % (0-10); NRBC Flagged by Analyzer 0 % (0-5); Neutrophil # 10.94 X10^3/uL (2.7-7.7); Neutrophil % 71.8 % (47-70); Platelet Count 388 K/mm3 (150-450); RBC Distribution Width CV 13.7 % (11.6-14.6); RBC Distribution Width SD 46.5 fl (35.1-43.9); White Blood Count 15.2 K/mm3 (4.4-11.0)
[2020-09-28 06:27] LABS: Anion Gap 4 (5-15); BUN 10 mg/dL (7-18); Calcium,Total 8.2 mg/dL (8.5-10.1); Chloride 107 mmol/L (98-107); Creatinine, Serum 0.84 mg/dL (0.55-1.02); EST Glomerular Filtration Rate 81 mL/min (>60); Est Glom Filt Rate - Afr Amer 98 mL/min (>60); Glucose 99 mg/dL (74-106); Potassium 3.6 mmol/L (3.5-5.1); Sodium Level 135 mmol/L (136-145)
--- NOTE | 2020-09-28 08:14 | NURSING ---
wound photo: right axilla
[2020-09-28 09:25] VITALS: BP 117/65; PULSE 82; RESP 18; TEMP 36.7; O2SAT 96
--- NOTE | 2020-09-28 09:45 | CASEMGMT ---
RN CM Face to Face with patient for initial transition planning/care coordination assessment. RN CM introduced self and role at [facility]. Patient lying in bed, alert and oriented. Patient willing to participate in assessment and is able to answer all questions appropriately. Care providers, pharmacy, and demographics verified. Patient wishes to discharge home, denies need for home health at this time. Patient states she has no further needs or concerns at this time. CM to follow for discharge planning needs that may arise. PCP: Courtney Bazan Specialists: LUIS ARMANDO Prince Preferred Pharmacy: [facility] Insurance: MMO Prescription Benefit: yes Living Will/HPOA: none LNOK: mother Living Arrangements: Patient states she is staying with friends in a mobile with 3 steps to enter the home. Patient states she is independent Transportation: self/friend DME/HHC: Patient denies DME or previous HHC. Patient states she has friend that could assist with wound dressing changes. Disposition Plan: Patient to discharge home with family support and follow-up plans in place. Patito MARAVILLA, RN, CM
[2020-09-28 14:40] VITALS: BP 117/73; PULSE 86; RESP 16; TEMP 37; O2SAT 98
[2020-09-28 20:03] VITALS: BP 95/49; PULSE 82; RESP 18; TEMP 36.6; O2SAT 99
[2020-09-28 20:03] LABS: Vancomycin, Trough Level 15.5 ug/mL (5.0-15.0)
--- NOTE | 2020-09-28 20:56 | PCM.RX.CS ---
Consult Pharmacy has been consulted to manage selected antiobiotic: Vancomycin Type of Consult: Follow-up Labs: Sodium 135 mmol/L (136-145) L 09/28/20 05:40 Potassium 3.6 mmol/L (3.5-5.1) 09/28/20 05:40 Chloride 107 mmol/L (98-107) 09/28/20 05:40 Carbon Dioxide 24.0 mmol/L (21.0-32.0) 09/28/20 05:40 Anion Gap 4 (5-15) L 09/28/20 05:40 BUN 10 mg/dL (7-18) 09/28/20 05:40 Creatinine 0.84 mg/dL (0.55-1.02) 09/28/20 05:40 Est GFR (MDRD) Af Amer 98 mL/min (>60) 09/28/20 05:40 Est GFR (MDRD) Non-Af 81 mL/min (>60) 09/28/20 05:40 BUN/Creatinine Ratio 12.0 RATIO (10-20) 09/28/20 05:40 Glucose 99 mg/dL (74-106) 09/28/20 05:40 Vancomycin Trough 15.5 ug/mL (5.0-15.0) H 09/28/20 19:35 Microbiology: Microbiology 09/28/20 02:55 Wound Abcess - Axillary Gram Stain - Final Goal Trough: 15-20 mcg/mL Pharmacy Plan for Drug Dosing: VANCOMYCIN LEVEL RECEIVED Current Vancomycin Dose: 1250mg IV Q8h Number of Doses Received: 4 ( 3 prior to trough draw) Vancomycin Level: 15.5 Hours Since Last Dose: 7.5hr Renal Function: 0.84 Renal Function Trend: stable Vancomycin Plan/Comments: Trough within goal of 15-20. Will continue current dose and recheck trough in 2 days. Pending Level: 09/30/20 @1930 Pharmacy Service will continue to monitor and adjust dosing as required.
[2020-09-29] MEDS: 0.9% Saline Lock 10 ML Syringe IV (02:40)
[2020-09-29] MEDS: Morphine 2 MG/ML Syringe IV ×4 (02:40→15:34)
[2020-09-29 02:44] VITALS: BP 116/71; PULSE 80; RESP 18; TEMP 36.4; O2SAT 97
--- NOTE | 2020-09-29 07:15 | PCM.PN.HOSP ---
Patient Problems: Active and Suspected Problems (Last Reviewed 09/27/20 @ 14:42 by Flory Moran) Cellulitis (Acute) Reason for Visit: cellulitis Subjective: Late addition. Patient seen and examined on 09/28. Drainage noted from right axillary region. 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 Vitals/I&O's: Vital Signs Temp Pulse Resp BP Pulse Ox 36.4 C L 80 18 116/71 97 09/29/20 02:44 09/29/20 02:44 09/29/20 02:44 09/29/20 02:44 09/29/20 02:44 Oxygen Delivery Method Room Air Weight: 112.4 kg Body Mass Index (BMI) 37.6 Intake and Output for Last 24 Hours 09/27/20 09/28/20 09/29/20 23:59 23:59 23:59 Intake Total 1585 / 1585 3175 / 3175 875 / 875 Balance 1585 / 1585 3175 / 3175 875 / 875 General: Alert, No apparent distress HEENT: Atraumatic, Normocephalic Skin: - - right axillary indurated region with purulence from 2 different regions. TTP. Microbiology Past 72 Hours 09/28/20 02:55 Wound Abcess - Axillary Gram Stain - Final Laboratory Results 09/28/20 19:35: Vancomycin Trough 15.5 H Current Medications Acetaminophen (Acetaminophen 325 Mg Tablet) 650 mg PO Q6H PRN PRN PRN Reason: Pain Score 1-10/Temp > 100.7 F Last Admin: 09/27/20 22:58 Dose: 650 mg Documented by: Vancomycin IV Pharmacy to Dose (1 ea/ Sodium Chloride) 500 mls @ 250 mls/hr IV X1 PRN; Protocol PRN Reason: Rx to Dose Vancomycin HCl 1,250 mg/ (Sodium Chloride) 275 mls @ 167 mls/hr IV Q8H [facility] Last Infusion: 09/29/20 05:48 Dose: Infused Documented by: Sodium Chloride () 250 mls @ 15 mls/hr IV .[id number] PRN PRN Reason: Saline Flush Sodium Chloride () 250 mls @ 15 mls/hr IV .[id number] PRN PRN Reason: Additional IVPB Infusion Melatonin (Melatonin 3 Mg Tablet) 3 mg PO QHS PRN PRN PRN Reason: INSOMNIA Morphine Sulfate (Morphine 2 Mg/Ml Syringe) 2 mg IV Q3H PRN PRN PRN Reason: Pain Score 6-10 Last Admin: 09/29/20 02:40 Dose: 2 mg Documented by: Nicotine (Nicotine 21 Mg Patch) 21 mg TD DAILY [facility] Last Admin: 09/28/20 09:27 Dose: 21 mg Documented by: Ondansetron HCl (Ondansetron 4 Mg/2 Ml Vial) 4 mg IV Q8H PRN PRN PRN Reason: NAUSEA/VOMITING Sodium Chloride (0.9% Saline Lock 10 Ml Syringe) 10 - 40 ml IV UD PRN PRN Reason: SALINE FLUSH Last Admin: 09/29/20 02:40 Dose: 10 ml Documented by: Medical Necessity - Tobacco Use Smoking Status: Current every day smoker Tobacco Use: Cigarettes Assessment/Plan All Active Problems (Last Reviewed 09/27/20 @ 14:42 by Flory Moran) Cellulitis (Acute) 1. right axillary abscess and cellulitis: Cx performed. Screens + MRSA. Continuie vancomycin. Inpatient E&M: 05908 Subs Hosp L1 - billing for 09/28/2020
[2020-09-29 07:54] VITALS: BP 122/82; PULSE 75; RESP 18; TEMP 36.5; O2SAT 96
--- NOTE | 2020-09-29 12:46 | PCM.PN.HOSP ---
Patient Problems: Active and Suspected Problems (Last Reviewed 09/27/20 @ 14:42 by Flory Moran) Cellulitis (Acute) Reason for Visit: cellulitis Subjective: still with pain, swelling and drainage from right axillary cellulitis Vitals/I&O's: Vital Signs Temp Pulse Resp BP Pulse Ox 36.5 C L 75 18 122/82 H 96 09/29/20 07:54 09/29/20 07:54 09/29/20 07:54 09/29/20 07:54 09/29/20 07:54 Oxygen Delivery Method Room Air Weight: 112.4 kg Body Mass Index (BMI) 37.6 Intake and Output for Last 24 Hours 09/27/20 09/28/20 09/29/20 23:59 23:59 23:59 Intake Total 1585 / 1585 3175 / 3175 875 / 875 Balance 1585 / 1585 3175 / 3175 875 / 875 General: Alert, No apparent distress HEENT: Atraumatic, Normocephalic Oral: Moist Mucosa, No Gingival or Mucosal Lesions/ Ulcerations Skin: - - Induration and scant drainage. Very tender anteriorly. Psych/Mental Status: Normal Affect, Appropriate Microbiology Past 72 Hours 09/28/20 02:55 Wound Abcess - Axillary Gram Stain - Final 09/28/20 02:55 Wound Abcess - Axillary Wound Culture - Preliminary Staphylococcus species Laboratory Results 09/28/20 19:35: Vancomycin Trough 15.5 H Current Medications Acetaminophen (Acetaminophen 325 Mg Tablet) 650 mg PO Q6H PRN PRN PRN Reason: Pain Score 1-10/Temp > 100.7 F Last Admin: 09/27/20 22:58 Dose: 650 mg Documented by: Vancomycin IV Pharmacy to Dose (1 ea/ Sodium Chloride) 500 mls @ 250 mls/hr IV X1 PRN; Protocol PRN Reason: Rx to Dose Vancomycin HCl 1,250 mg/ (Sodium Chloride) 275 mls @ 167 mls/hr IV Q8H [facility] Last Admin: 09/29/20 12:43 Dose: 167 mls/hr Documented by: Sodium Chloride () 250 mls @ 15 mls/hr IV .[id number] PRN PRN Reason: Saline Flush Sodium Chloride () 250 mls @ 15 mls/hr IV .[id number] PRN PRN Reason: Additional IVPB Infusion Melatonin (Melatonin 3 Mg Tablet) 3 mg PO QHS PRN PRN PRN Reason: INSOMNIA Morphine Sulfate (Morphine 2 Mg/Ml Syringe) 2 mg IV Q3H PRN PRN PRN Reason: Pain Score 6-10 Last Admin: 09/29/20 12:16 Dose: 2 mg Documented by: Nicotine (Nicotine 21 Mg Patch) 21 mg TD DAILY [facility] Last Admin: 09/29/20 07:50 Dose: 21 mg Documented by: Ondansetron HCl (Ondansetron 4 Mg/2 Ml Vial) 4 mg IV Q8H PRN PRN PRN Reason: NAUSEA/VOMITING Sodium Chloride (0.9% Saline Lock 10 Ml Syringe) 10 - 40 ml IV UD PRN PRN Reason: SALINE FLUSH Last Admin: 09/29/20 02:40 Dose: 10 ml Documented by: Medical Necessity - Tobacco Use Smoking Status: Current every day smoker Tobacco Use: Cigarettes Assessment/Plan All Active Problems (Last Reviewed 09/27/20 @ 14:42 by Flory Moran) Cellulitis (Acute) 1. right axillary abscess and cellulitis: Cx performed. Screens + MRSA. Continue vancomycin. Culture still pending. Though it is showing staph aureus. Continue with warm compresses. CAT scan did not show any abscess and any purulence appears to be more superficial. Inpatient E&M: 27994 [facility] Hosp L1
[2020-09-29 15:34] VITALS: BP 115/72; PULSE 78; RESP 18; TEMP 36.5; O2SAT 95
[2020-09-29] MEDS: oxyCODONE 5 MG Tablet PO (19:34)
[2020-09-29 20:15] VITALS: BP 125/73; PULSE 90; RESP 18; TEMP 36.5; O2SAT 99
[2020-09-30 03:37] VITALS: BP 122/79; PULSE 86; RESP 16; TEMP 36.6; O2SAT 98
[2020-09-30] MEDS: oxyCODONE 5 MG Tablet PO ×3 (03:47→12:33)
[2020-09-30 06:47] LABS: Hematocrit 37.6 % (37-47); Hemoglobin 11.7 g/dL (12.0-15.0); Mean Corp Hgb Conc 31.1 g/dL (32-36); Mean Corpuscular Hgb 29.1 pg (27.0-32.0); Mean Corpuscular Volume 93.5 fL (81-99); Mean Platelet Vol. 9.3 fl (6.2-12.0); POSITIVE COUNT YES; POSITIVE MORPHOLOGY YES; Platelet Count 513 K/mm3 (150-450); RBC Distribution Width CV 13.3 % (11.6-14.6); RBC Distribution Width SD 45.6 fl (35.1-43.9); Red Blood Count 4.02 M/mm3 (4.2-5.4); White Blood Count 10.4 K/mm3 (4.4-11.0)
[2020-09-30 06:53] LABS: Differential Indicated MANUAL DIFF
[2020-09-30 07:18] LABS: Anion Gap 7 (5-15); BUN 16 mg/dL (7-18); Calcium,Total 8.3 mg/dL (8.5-10.1); Chloride 108 mmol/L (98-107); Creatinine, Serum 0.76 mg/dL (0.55-1.02); EST Glomerular Filtration Rate 90 mL/min (>60); Est Glom Filt Rate - Afr Amer 109 mL/min (>60); Estimated Creatinine Clearance 101.25 ml/min; Glucose 129 mg/dL (74-106); Potassium 4.2 mmol/L (3.5-5.1); Sodium Level 137 mmol/L (136-145)
[2020-09-30 07:26] LABS: Total Cells Counted 100 (MANUAL DIFF)
[2020-09-30 07:30] LABS: Lymphocyte 28 % (19-41); Metamyelocyte 1 % (0-1); Neutrophil-Band 3 % (0-5); Neutrophil-Segmented 60 % (47-70)
[2020-09-30 07:31] LABS: Atypical Lymphocyte RARE %; Basophil 1 % (0-1); Eosinophil 2 % (0-5); Monocyte 3 % (0-10); Promyelocyte 2 (0-0)
[2020-09-30 07:33] LABS: Absolute Lymphocyte Count 2.91 X10^3/uL (0.83-4.51); Absolute Neutrophil Count 6.2 X10^3/uL (2.0-7.7); Lymphocyte # 2.91 X10^3/ul (4.0)
[2020-09-30 07:34] LABS: Platelet Estimate SLT INC (ADEQ)
[2020-09-30 08:18] VITALS: BP 117/74; PULSE 83; RESP 18; TEMP 36.5; O2SAT 97
--- NOTE | 2020-09-30 11:23 | CT_ITS ---
STUDY: CT CHEST WITH CONTRAST REASON FOR EXAM: Female, 39 years old. RT AXILLARY CELLULITIS, LOOKING FOR RT AXILLARY ABSCESS, COMPARE TO SCAN DONE 09/27 RADIATION DOSAGE (If Supplied By Facility): CTDIvol = ( 15.24 ) mGy, DLP = ( 625.37 ) mGycm TECHNIQUE: Transaxial imaging was performed following intravenous administration of IV 100mL Isovue-370. Multiplanar coronal and sagittal images were reformatted. Individualized dose optimization techniques were used for this CT. COMPARISON: September 27, 2020. FINDINGS: There are mild interstitial increased opacities of the lungs. There is no demonstrated pleural abnormality. Normal heart and pericardium. Normal mediastinum. Normal hilar regions. Normal enhanced pulmonary arteries. Normal aorta arch and descending thoracic aorta. Normal osseous structures. There is improvement of skin thickening and subcutaneous edema in the right axillary region. There are lymph nodes measuring up to 1.2 cm. No focal fluid collection. There is no demonstrated abnormality of the visualized upper abdomen. CT/Chest WITH Contrast IMPRESSION: Skin thickening and subcutaneous edema of the right axilla with improvement. No focal abscess. Electronically Signed: Flash Morin MD at 12:49 EST , Service support ,
[2020-09-30] MEDS: 0.9% Saline Lock 10 ML Syringe IV (11:48)
--- NOTE | 2020-09-30 12:08 | PCM.PN.HOSP ---
Patient Problems: Active and Suspected Problems (Last Reviewed 09/27/20 @ 14:42 by Flory Moran) Cellulitis (Acute) Reason for Visit: cellulitis Subjective: Decreased pain and drainage from right axilla. Vitals/I&O's: Vital Signs Temp Pulse Resp BP Pulse Ox 36.5 C L 83 18 117/74 97 09/30/20 08:18 09/30/20 08:18 09/30/20 08:18 09/30/20 08:18 09/30/20 08:18 Oxygen Delivery Method Room Air Weight: 112.4 kg Body Mass Index (BMI) 37.6 Intake and Output for Last 24 Hours 09/28/20 09/29/20 09/30/20 23:59 23:59 23:59 Intake Total 3175 / 3175 2625.5 / 2625.5 1115 / 1115 Balance 3175 / 3175 2625.5 / 2625.5 1115 / 1115 General: Alert, No apparent distress HEENT: Atraumatic, Normocephalic Skin: - - decreased drainage from right axilla. decreased induration. Microbiology Past 72 Hours 09/27/20 16:30 Blood Culture (Wb) - Anticubital Left Blood Culture - Preliminary No growth in 48 hours. 09/27/20 16:50 Blood Culture (Wb) - Right Hand Blood Culture - Preliminary No growth in 48 hours. 09/28/20 02:55 Wound Abcess - Axillary Gram Stain - Final 09/28/20 02:55 Wound Abcess - Axillary Wound Culture - Final Meth. resistant Staph. aureus Laboratory Results 09/30/20 06:31: WBC 10.4, RBC 4.02 L, Hgb 11.7 L, Hct 37.6, MCV 93.5, MCH 29.1, MCHC 31.1 L, RDW Std Deviation 45.6 H, RDW Coeff of Cira 13.3, Plt Count 513 H, MPV 9.3, Neut % (Auto) Not Reportable, Absolute Neuts (auto) 6.2, Absolute Lymphs (auto) 2.91, Total Counted 100, Neutrophils % (Manual) 60, Band Neutrophils % 3, Lymphocytes % (Manual) 28, Monocytes % (Manual) 3, Eosinophils % (Manual) 2, Basophils % (Manual) 1, Metamyelocytes % 1, Promyelocytes % 2 H, Diff Path Review May foll, Atypical Lymphocytes RARE, Platelet Estimate [facility] 09/30/20 06:31: Sodium 137, Potassium 4.2, Chloride 108 H, Carbon Dioxide 22.0, Anion Gap 7, BUN 16, Creatinine 0.76, Estim Creat Clear Calc 101.25, Est GFR (MDRD) Af Amer 109, Est GFR (MDRD) Non-Af 90, BUN/Creatinine Ratio 21.0 H, Glucose 129 H, Calcium 8.3 L Current Medications Acetaminophen (Acetaminophen 325 Mg Tablet) 650 mg PO Q6H PRN PRN PRN Reason: Pain Score 1-10/Temp > 100.7 F Last Admin: 09/27/20 22:58 Dose: 650 mg Documented by: Vancomycin IV Pharmacy to Dose (1 ea/ Sodium Chloride) 500 mls @ 250 mls/hr IV X1 PRN; Protocol PRN Reason: Rx to Dose Vancomycin HCl 1,250 mg/ (Sodium Chloride) 275 mls @ 167 mls/hr IV Q8H [facility] Last Admin: 09/30/20 11:48 Dose: 167 mls/hr Documented by: Sodium Chloride () 250 mls @ 15 mls/hr IV .[id number] PRN PRN Reason: Saline Flush Last Infusion: 09/29/20 21:31 Dose: 0 mls/hr Documented by: Sodium Chloride () 250 mls @ 15 mls/hr IV .[id number] PRN PRN Reason: Additional IVPB Infusion Melatonin (Melatonin 3 Mg Tablet) 3 mg PO QHS PRN PRN PRN Reason: INSOMNIA Morphine Sulfate (Morphine 2 Mg/Ml Syringe) 2 mg IV Q3H PRN PRN PRN Reason: breakthrough pain Last Admin: 09/29/20 15:34 Dose: 2 mg Documented by: Nicotine (Nicotine 21 Mg Patch) 21 mg TD DAILY [facility] Last Admin: 09/30/20 08:25 Dose: 21 mg Documented by: Ondansetron HCl (Ondansetron 4 Mg/2 Ml Vial) 4 mg IV Q8H PRN PRN PRN Reason: NAUSEA/VOMITING Oxycodone HCl (Oxycodone 5 Mg Tablet) 5 - 10 mg PO Q4H PRN PRN PRN Reason: Pain, see dose instructions Last Admin: 09/30/20 08:32 Dose: 10 mg Documented by: Sodium Chloride (0.9% Saline Lock 10 Ml Syringe) 10 - 40 ml IV UD PRN PRN Reason: SALINE FLUSH Last Admin: 09/30/20 11:48 Dose: 10 ml Documented by: STROKE Vital Signs/Narrative: Vital Signs Temp Pulse Resp BP Pulse Ox 09/30/20 08:18 36.5 C L 83 18 117/74 97 Medical Necessity - Tobacco Use Smoking Status: Current every day smoker Tobacco Use: Cigarettes Assessment/Plan All Active Problems (Last Reviewed 09/27/20 @ 14:42 by Flory Moran) Cellulitis (Acute) 1. right axillary abscess and cellulitis: Cx performed. Screens + MRSA. Continue vancomycin. Culture still pending. Though it is showing staph aureus. Continue with warm compresses. CAT scan did not show any abscess and any purulence appears to be more superficial. recheck CT to see if abscess. Inpatient E&M: 64503 Subs Hosp L1
--- NOTE | 2020-09-30 13:53 | DCINST_ITS ---
- Discharge Diagnoses Current Active Problems: Current Active and Chronic Problems (Last Reviewed 09/27/20 @ 14:42 by Flory Moran) Anxiety (Chronic) Cellulitis (Acute) You will use the following diet at home:: No restrictions Your food should be the consistency of: Regular Your liquids should be the consistency of: Regular/Thin Discharge Activity: Return to Normal Activity Call your doctor if your incision/area has: Continuous Slow Oozing, Sudden Increased Bleeding, Increased Pain/ Swelling, Increased Redness, Foul Smelling Discharge Call your doctor if you observe: Fever of 101 or Higher Cleanse incision/area with: Soap & Water, Keep Dressing Clean & Dry, - - warm compresses twice daily to right axilla (arm pit) Allergies/Adverse Reactions: Allergies No Known Allergies Allergy (Verified 09/27/20 15:52) Medications to take at Discharge Smz/Tmp Ds [Bactrim Ds] 1 tab PO BID 09/27/20 Acetaminophen [Tylenol Tablet] 650 mg PO Q6H PRN PRN tablet 09/30/20 Ibuprofen 2 - 3 tab PO Q6H PRN #1 tablet 09/30/20 Oxycodone [Oxyir] 5 mg PO Q6H PRN 2 Days #8 tablet 09/30/20 The following prescriptions were given: Ibuprofen 2 - 3 tab PO Q6H PRN #1 tablet PRN Reason: Pain 1-10 Or Fever Oxycodone [Oxyir] 5 mg PO Q6H PRN 2 Days #8 tablet PRN Reason: pain 6-10/10 Transmission Status: Sent to [facility] #[facility] Primary Care Physician: [facility] Courtney Frankel [Primary Care Provider] - Within 1 Week Test Results: Test results from this visit will be discussed in further detail at your follow- up appointment, if applicable. Proposed Discharge Date: 09/30/20
--- NOTE | 2020-09-30 13:55 | DS.PCM_ITS ---
Discharge Date and Diagnosis - Problem List Patient Problems: Active and Suspected Problems (Last Reviewed 09/27/20 @ 14:42 by Flory Moran) Cellulitis (Acute) Date of Admission: 09/27/20 Date of Discharge: 09/30/20 - Primary Discharge Diagnosis Acute Problems: Active Problems (Last Reviewed 09/27/20 @ 14:42 by Flory Moran) Cellulitis (Acute) - Secondary Discharge Diagnosis Chronic Problems: Chronic Problems (Last Reviewed 09/27/20 @ 14:42 by Flory Moran) Anxiety (Chronic) Depression (Chronic) Hospital Course and Treatment Imaging Results: 09/30/20 11:23 CT Chest [Chest WITH Contrast] [CT] Urgent Clinical Impression(s) from Imaging Studies Chest CT 09/27/20 16:23 IMPRESSION: Diffuse subcutaneous edema with stranding and subcutaneous fluid in the right axilla. No discrete fluid collection. Right axillary lymphadenopathy. Electronically Signed: Bishnu Allen, at 18:20 EST Tel , Service support , Chest CT 09/30/20 11:23 IMPRESSION: Skin thickening and subcutaneous edema of the right axilla with improvement. No focal abscess. 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 Patient was diagnosed last week but did not start the antibiotics until this past Saturday. Despite that had just gotten worse and more indurated and red. Presented to the emergency room. Patient had a CAT scan that did not show any abscess. After admission the following day, it started draining superficially purulent fluid. Fluid was cultured and came back showing MRSA that was sensitive to trimethoprim/sulfamethoxazole. Patient had been on that antibiotic prior to her arrival but is my feeling that cascading quickly before antibiotics were able to sufficiently slow the progress. Patient today had improvement of her swelling repeat CAT scan showed actual improvement and no abscess formation. Patient instructed to complete the course of trimethoprim/sulfamethoxazole to completion and to discontinue the Keflex as this is MRSA. Patient advised if he does have worsening of her cellulitis to notify someone or come back into the emergency room. [] Patient Problems: Active and Suspected Problems (Last Reviewed 09/27/20 @ 14:42 by Flory Moran) Cellulitis (Acute) - Physical Exam Vitals/I&O's: Vital Signs Temp Pulse Resp BP Pulse Ox 36.5 C L 83 18 117/74 97 09/30/20 08:18 09/30/20 08:18 09/30/20 08:18 09/30/20 08:18 09/30/20 08:18 Oxygen Delivery Method Room Air Weight: 112.4 kg Body Mass Index (BMI) 37.6 Intake and Output for Last 24 Hours 09/28/20 09/29/20 09/30/20 23:59 23:59 23:59 Intake Total 3175 / 3175 2625.5 / 2625.5 1390 / 1390 Balance 3175 / 3175 2625.5 / 2625.5 1390 / 1390 Microbiology Past 72 Hours 09/27/20 16:30 Blood Culture (Wb) - Anticubital Left Blood Culture - Preliminary No growth in 48 hours. 09/27/20 16:50 Blood Culture (Wb) - Right Hand Blood Culture - Preliminary No growth in 48 hours. 09/28/20 02:55 Wound Abcess - Axillary Gram Stain - Final 09/28/20 02:55 Wound Abcess - Axillary Wound Culture - Final Meth. resistant Staph. aureus Laboratory Results 09/30/20 06:31: WBC 10.4, RBC 4.02 L, Hgb 11.7 L, Hct 37.6, MCV 93.5, MCH 29.1, MCHC 31.1 L, RDW Std Deviation 45.6 H, RDW Coeff of Cira 13.3, Plt Count 513 H, MPV 9.3, Neut % (Auto) Not Reportable, Absolute Neuts (auto) 6.2, Absolute Lymphs (auto) 2.91, Total Counted 100, Neutrophils % (Manual) 60, Band Ne utrophils % 3, Lymphocytes % (Manual) 28, Monocytes % (Manual) 3, Eosinophils % (Manual) 2, Basophils % (Manual) 1, Metamyelocytes % 1, Promyelocytes % 2 H, Diff Path Review May foll, Atypical Lymphocytes RARE, Platelet Estimate [facility] 09/30/20 06:31: Sodium 137, Potassium 4.2, Chloride 108 H, Carbon Dioxide 22.0, Anion Gap 7, BUN 16, Creatinine 0.76, Estim Creat Clear Calc 101.25, Est GFR (MDRD) Af Amer 109, Est GFR (MDRD) Non-Af 90, BUN/Creatinine Ratio 21.0 H, Glucose 129 H, Calcium 8.3 L Current Medications Acetaminophen (Acetaminophen 325 Mg Tablet) 650 mg PO Q6H PRN PRN PRN Reason: Pain Score 1-10/Temp > 100.7 F Last Admin: 09/27/20 22:58 Dose: 650 mg Documented by: Vancomycin IV Pharmacy to Dose (1 ea/ Sodium Chloride) 500 mls @ 250 mls/hr IV X1 PRN; Protocol PRN Reason: Rx to Dose Vancomycin HCl 1,250 mg/ (Sodium Chloride) 275 mls @ 167 mls/hr IV Q8H [facility] Last Infusion: 09/30/20 13:27 Dose: Infused Documented by: Sodium Chloride () 250 mls @ 15 mls/hr IV .[id number] PRN PRN Reason: Saline Flush Last Infusion: 09/29/20 21:31 Dose: 0 mls/hr Documented by: Sodium Chloride () 250 mls @ 15 mls/hr IV .[id number] PRN PRN Reason: Additional IVPB Infusion Melatonin (Melatonin 3 Mg Tablet) 3 mg PO QHS PRN PRN PRN Reason: INSOMNIA Morphine Sulfate (Morphine 2 Mg/Ml Syringe) 2 mg IV Q3H PRN PRN PRN Reason: breakthrough pain Last Admin: 09/29/20 15:34 Dose: 2 mg Documented by: Nicotine (Nicotine 21 Mg Patch) 21 mg TD DAILY [facility] Last Admin: 09/30/20 08:25 Dose: 21 mg Documented by: Ondansetron HCl (Ondansetron 4 Mg/2 Ml Vial) 4 mg IV Q8H PRN PRN PRN Reason: NAUSEA/VOMITING Oxycodone HCl (Oxycodone 5 Mg Tablet) 5 - 10 mg PO Q4H PRN PRN PRN Reason: Pain, see dose instructions Last Admin: 09/30/20 12:33 Dose: 10 mg Documented by: Sodium Chloride (0.9% Saline Lock 10 Ml Syringe) 10 - 40 ml IV UD PRN PRN Reason: SALINE FLUSH Last Admin: 09/30/20 11:48 Dose: 10 ml Documented by: Discharge Diet: No Restrictions Discharge Activity: Return to Normal Activity Call your doctor if your incision/area has: Continuous Slow Oozing, Sudden Increased Bleeding, Increased Pain/ Swelling, Increased Redness, Foul Smelling Discharge Call your doctor if you observe: Fever of 101 or Higher Cleanse incision/area with: Soap & Water, Keep Dressing Clean & Dry, - - warm compresses twice daily to right axilla (arm pit) Home Medications: Medications to take at Discharge Smz/Tmp Ds [Bactrim Ds] 1 tab PO BID 09/27/20 Acetaminophen [Tylenol Tablet] 650 mg PO Q6H PRN PRN tablet 09/30/20 Ibuprofen 2 - 3 tab PO Q6H PRN #1 tablet 09/30/20 Oxycodone [Oxyir] 5 mg PO Q6H PRN 2 Days #8 tablet 09/30/20 Following Prescriptions Were Given to Patient: Ibuprofen 2 - 3 tab PO Q6H PRN #1 tablet PRN Reason: Pain 1-10 Or Fever Oxycodone [Oxyir] 5 mg PO Q6H PRN 2 Days #8 tablet PRN Reason: pain 6-10/10 Transmission Status: [facility] to [facility] #30 [facility] - Within 1 Week Disposition: Home Minutes spent on discharge:: 32 Patient Condition:: Good Medical Necessity - Tobacco Use Smoking Status: Current every day smoker Tobacco Use: Cigarettes Meaningful Use Info Meaningful Use Diagnoses (Choose all that apply): None applicable Inpatient E&M: 38466 Disch Hosp
[2020-09-30 14:30] LABS: Pathologist Review Reviewed
[2020-09-30 14:37] VITALS: BP 112/70; PULSE 79; RESP 18; TEMP 36.6; O2SAT 97
[2020-09-30 14:45] VITALS: BP 112/70; PULSE 79; RESP 18; TEMP 36.6; O2SAT 97
== END 2020-09-30 14:47 | disposition home or self-care (01) | DRG 603 ==
LOC: ED 18:37 → MS3 20:00
PROVIDERS: Hospitalist; Admitting Provider Family Medicine; Emergency Provider Emergency Medicine
DX: L03.111 Cellulitis of right axilla (principal); A49.02 Methicillin resistant Staphylococcus aureus infection, unspecified site; F41.9 Anxiety disorder, unspecified; F32.9 Major depressive disorder, single episode, unspecified; G89.29 Other chronic pain; F17.210 Nicotine dependence, cigarettes, uncomplicated; Z80.0 Family history of malignant neoplasm of digestive organs; Z82.49 Family history of ischemic heart disease and other diseases of the circulatory system
CPT/HCPCS: 36415; 71260; 80048; 80202; 85025; 87040; 87070; 87077; 87186; 87205; 87640; 99284; 99406; J7030; J7040; J7050; Q9967; 90686; A4216; J2405